=== PATIENT | male | born 1985 | race Caucasian/White ===

== ENCOUNTER → 2023-09-11 11:17 | Outpatient (CLI) | payer SELFPAY ==
--- NOTE | ~2023-09-11 | XR_ITS ---
[XR ribs RT 2V ] INDICATION: Right rib pain TECHNIQUE: Frontal projection of the upper right ribs, frontal projection of the lower right ribs, ob lique projection of all the right ribs, frontal inspiratory chest x-ray for interpretation. FINDINGS: There are no displaced rib fractures identified. There are no soft tissue abnormality see n. The lungs are clear. IMPRESSION: 1:No acute displaced rib fractures. Reviewed, dictated and finalized at location A.
== END ==
PROVIDERS: PCP Chiropractor; Visit Provider Chiropractor
DX: R07.81 Pleurodynia (principal)
CPT/HCPCS: 71100

== ENCOUNTER 2025-02-07 14:30 | Outpatient (RCR) | payer BC, SELFPAY ==
--- NOTE | 2025-01-24 13:39 | OTOPEVAL1 ---
Assessment and note entered by BIN Macias/Brooks, CHT OT Evaluation Information 01/24/25 Assessment Status Evaluation Diagnosis G56.22 Lesion of ulnar nerve, right UE Subjective Information Patient is right handed. He has been experiencing right UE/elbow pain for about a month or two. He describes the pain as radiating, noting it goes into his hand and the ulnar 2 digits. States he was prescribed Prednisone and this has helped, but he continues to have daily pain. 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 Does woodworking in his spare time. Reports elbow pain with gripping, lifting, and carrying. States he wakes up in the middle of the night with elbow pain if his elbow is bent. Reported Pain Level Pain Score 3: Self Report Additional Pain Score Comments Reports constant right elbow pain. Points to the lateral elbow as well as the medial elbow. Assessment OT Clinical Summary Patient referred to OT with right elbow pain and dx of ulnar nerve lesion. He presents with signs and symptoms of cubital tunnel syndrome as well as lateral epicondylitis. Educated patient on HEP for nerve glides and elbow positioning to reduce nerve compression. Also educated on wrist and chef french strengthening for the lateral elbow pain. Patient to work on this HEP and return for reassessment in 2 weeks. Plan of Care Interventions Therapeutic Exercise,Manual Therapy,Neuro Re- education,Therapeutic Activities,Hot Pack/Cold Pack,Ultrasound,Paraffin OT Services Indicated Yes These treatments will address the objective and functional deficits as defined above. The patient will be advanced safely and appropriately in order for the patient to progress towards his/her prior level of function. Additional exercises will be introduced and as well as a comprehensive home exercise program upon discharge, if needed, ?to ensure carryover of functional gains achieved in the clinic. This treatment plan has been reviewed and agreement upon by the patient.
--- NOTE | 2025-01-24 13:46 | OPREHPOC ---
Outpatient Therapy Plan of Care This is a Multidisciplinary Plan of Care that may contain components documented by all disciplines (PT, OT, and ST.) OT Problem 1 OT Problem #1 Knowledge Deficit OT Goal 1 Goal / Goal Update Patient to be independent with instructed materials. Target Visit 2 OT Problem 2 OT Problem #2 Pain OT Goal 1 Goal / Goal Update Patient to report reduced (R) elbow/UE pain to 0/ 10 at rest and 2/10 at worst . Target Visit 2 OT Problem 3 OT Problem #3 Impaired Flexibility OT Goal 1 Goal / Goal Update Patient to be able to complete right UE ulnar nerve tension test without pain. 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 Target Visit 2
--- NOTE | 2025-02-07 15:08 | OTOPDC ---
Assessment and note entered by Jc Tomas, OTR/Brooks, GILLIANT OT D/C SUMMARY 02/07/25 Assessment Status Discharge Diagnosis G56.22 Lesion of ulnar nerve, right UE ICD-10 Condition Codes (OT) Pain in right elbow M25.521 Subjective Information Patient reports good progress in the last 2 weeks. He reports his ulnar nerve pain has subsided, no longer experiencing symptoms in the ulnar 2 digits . He is no longer waking up with elbow pain. The lateral elbow pain has also improved, able to do more gripping, lifting, and carrying with less pain and pain that doesn't last as long. He is compliant with is HEP. Reported Pain Level Pain Score 0: Self Report Additional Pain Score Comments Patient reports no pain at rest. He states in the last week he had an instance of 6/10 pain, but this subsided quickly. Lateral elbow pain 2/10 with forceful gripping. Assessment OT Clinical Summary Patient referred to OT with right elbow pain and dx of ulnar nerve lesion. His ulnar nerve symptoms have subsided and the lateral elbow pain has improved. His etl lead strength has improved to normal limits. He continues to experience some lateral elbow pain with UE use. Today palpation of the lateral elbow reveals no tenderness and lateral epicondylitis tests were negative. Instead he has pain at the radial nerve in the radial tunnel with a positive upper limb tension test for the radial nerve. Issued radial nerve glides. He also has ECU pain with resisted wrist extension. Provided education on soft tissue mobilization for relief here. Reviewed HEP for gross strengthening. At this time patient is independent with all materials, making good progress with pain relief, and in agreement with D/C. D/C today with HEP. Plan of Care OT Services Indicated No
== END 2025-02-08 09:31 | disposition home or self-care (01) ==
LOC: ANHGOSHOT 14:30
PROVIDERS: PCP Internal Medicine; Visit Provider Clinical Nurse Specialist
DX: G56.21 Lesion of ulnar nerve, right upper limb (principal)
CPT/HCPCS: 97018; 97110; 97165

== ENCOUNTER 2025-03-01 12:49 | Outpatient (CLI) | payer BC, SELFPAY ==
--- OUTSIDE RECORDS SUMMARY | 2025-03-01 14:18 | XMS_ITS | Continuity of Care Document ---
Author Organization [facility] Address [address] [place] [address] Phone Care Team Providers Care Funeral Service Apprentice Name Role Phone Marks OD, Kb Unavailable Unavailable Procedures Procedure Date Remove Foreign Body From Eye Advance Directives Directive Yes / No Effective Date File Name No Information Encounters Encounter Description Practice Location Reason(s) For Visit Diagnoses Date Provider Providers Copied on Encounter [facility], [address], [place], [place], [id number], [place] tel:[phone] [facility] No Information 4-201 0 Marks OD Kb. [address] , [address], [place], [address], [place]. tel:[phone] Referring Provider: Mehul Mcpherson OD, [address] [place], [address]. tel:[phone] Family History Family Member Type Diagnosis Age At Onset No Information Payers Payer name Insurance type Covered alliance party ID Authoriza tion(s) No Information Social History Type Description Quantity Date Captured Comments Sex Male Smoking Status No Information Chief Complaint And Reason For Visit No Information Reason For Referral Reason For Referral No Information History Of Present Illness Encounter Date Complaint History Of Prese nt Illness No Information Functional Status Date Functional Assessmen t No Information Instructions Date Instruction Additional Infor mation No Information Assessments Type Assessment Date No Information Patient Care Teams Name Effective Dates (start - stop) Status Members No Information
--- OUTSIDE RECORDS SUMMARY | 2025-03-01 14:18 | XMS_ITS | Clinical Summary ---
Author Organization [facility] Administrative Offices Address [address] [place] [address] Care Team Providers Care Dustless Operator Name Role Phone Unavailable Primary Care Provider Unavailabl e Allergies No known active allergies Medications traMADol (ULTRAM) 50 mg tabletIndicatio ns:Vasectomy evaluation Take 2 Tablets (100 mg) by mouth every 8 hours as needed for Pain. 20 Tablet 5 Active LORazepam (ATIVAN) 1 mg tabletIndicatio ns:Vasectomy evaluation Take 3 pills 1 hour prior to procedure 3 Tablet 5 Active cephALEXin (KEFLEX) 500 mg capsule Take 1 Capsule (500 mg) by mouth every 8 hours for 7 days. Start after vasectomy 21 Capsule 5 02/29/20 25 Active Problems No known active problems Encounters Date Type Department Care Team Description 02/21/2025 9:55 AM CDT Office Visit [facility] at the [facility] Medicine [address] [place] [address] Kevin Singh MD Vasectomy evaluation (Primary Dx) 01/03/2025 External Device Data STL ABSTRACTION Provider, Abstract 12/01/2024 External Device Data STL ABSTRACTION Provider, Abstract from Last 3 Months Social History Tobacco Use Types Packs/Day Years Used Date Smoking Tobacco: Never Tobacco Cessation:Counseling Given: Not Answered Sex and Gender Information Value Date Recorded Sex Assigned at Not on file Legal Sex Male 8:01 AM CDT Gender Identity Not on file Sexual Orientation Not on file Last Filed Vital Signs Vital Sign Reading Time Taken Comments Blood Pressure 130/70 06/08/2024 8:16 AM CDT Pulse 67 06/08/2024 8:16 AM CDT Temperature 36.8 C (98.2 F) 06/08/2024 8:16 AM CDT Respiratory Rate 18 02/21/2025 9:46 AM CDT Oxygen Saturation 99% 06/08/2024 8:16 AM CDT Inhaled Oxygen Concentration - - Weight 86.2 kg (190 lb) 02/21/2025 9:46 AM CDT Height 188 cm (6' 2 ) 06/08/2024 8:16 AM CDT Body Mass Index 24.39 06/08/2024 8:16 AM CDT Plan of Treatment Health Maintenance Due Date Last Done Comments DTAP/TDAP/TD VACCINES (1 - Tdap) 2004 HEPATITIS B VACCINES (1 of 3 - 19+ 3-dose series) 2004 INFLUENZA VACCINE (#1) 2024 HPV VACCINES Aged Out No longer eligi ble based on patient's age to complete this topic Insurance [facility] BLUE ACCESS/TRUE BLUE PPO
--- NOTE | 2025-03-01 14:45 | NEURO_ITS ---
Impression: # Complains of right forearm discomfort. Non-diabetic. ? # Right ulnar neuropathy across the elbow. ? # No Carpal Tunnel Syndrome. ? # Normal needle/EMG exam. Nerve Conduction Studies Anti Sensory Summary Table ?Stim Site NR Peak (ms) P-T Amp (?V) Site1 Site2 Delta-P (ms) Dist (cm) Darshan (m/s) Right Median Anti Sensory (2-3nd Digit) Wrist ? 2.8 66.0 Wrist 2-3nd Digit 2.8 14.0 50 Wrist ? 2.9 78.7 Wrist 2-3nd Digit 2.8 14.0 50 Right Radial Anti Sensory (Base 1st Digit) Wrist ? 2.2 28.9 Wrist Base 1st Digit 2.2 0.0 Right Ulnar Anti Sensory (5th Digit) Wrist ? 2.5 58.5 Wrist 5th Digit 2.5 14.0 56 Motor Summary Table ?Stim Site NR Onset (ms) O-P Amp (mV) Site1 Site2 Delta-0 (ms) Dist (cm) Darshan (m/s) Right Median Motor (Abd Poll Brev) Wrist ? 3.4 2.1 Elbow Wrist 5.4 32.0 59 Elbow ? 8.8 8.9 Right Ulnar Motor (Abd Dig Minimi) Wrist ? 2.7 4.8 A Elbow Wrist 5.7 32.0 56 A Elbow ? 8.4 4.0 B Elbow Wrist 3.6 23.0 64 B Elbow ? 6.3 5.0 F Wave Studies ?NR F-Lat (ms) L-R F-Lat (ms) Right Median (Mrkrs) (Abd Poll Brev) ? 29.36 Right Ulnar (Mrkrs) (Abd Dig Min) ? 29.85 EMG ?Side Muscle Nerve Root Ins Act Fibs Amp Dur Recrt Comment Right 1stDorInt Ulnar C8-T1 Nml Nml Nml Nml Nml Right Ext Indicis Radial (Post Int) C7-8 Nml Nml Nml Nml Nml Right Ext Digitorum Radial (Post Int) C7-8 Nml Nml Nml Nml Nml Right BrachioRad Radial C5-6 Nml Nml Nml Nml Nml Right PronatorTeres Median C6-7 Nml Nml Nml Nml Nml Right Abd Poll Brev Median C8-T1 Nml Nml Nml Nml Nml Right ABD Dig Min Ulnar C8-T1 Nml Nml Nml Nml Nml Right FlexPolLong Median (Ant Int) C7-8 Nml Nml Nml Nml Nml Right Abd Poll Long Radial (Post Int) C7-8 Nml Nml Nml Nml Nml MTDD
== END 2025-03-01 12:50 | disposition home or self-care (01) ==
LOC: ANHNEURO 12:50
PROVIDERS: PCP Internal Medicine; Visit Provider Clinical Nurse Specialist
DX: G57.81 Other specified mononeuropathies of right lower limb (principal)
CPT/HCPCS: 95886; 95909

== ENCOUNTER 2025-06-21 00:52 | Day surgery (SDC) | payer BC, SELFPAY ==
[2025-06-12 13:25] VITALS: BMI 23.6
--- NOTE | 2025-06-12 13:26 | PC.NURSE ---
Report to the Outpatient Waiting Room, entrance under the green pavilion located off [facility], at time _1200_ on date _[id number]_. Planned Procedure Time: _2pm_.? Time changes happen often and if your time is changed the preop area will call you the afternoon before. - You and your visitor will be asked to self-screen and do not enter if you have any COVID symptoms. Please call surgeon if you need to reschedule. - A mask is optional within the hospital at this time. May have clear liquids (water, carbonated beverages, clear teas, apple juice) until 6am prior to surgery with a maximum of 20 ounces. Nothing to drink after 6am. - No food from midnight until time of surgery and no smoking, or chewing tobacco (or any form of nicotine). No chewing gum, candy or mints. Take only the following medications with a SIP of water on the morning of surgery: ___None____ DO NOT STOP ANY OF YOUR OTHER PRESCRIPTION MEDICATIONS PRIOR TO SURGERY EXCEPT THE FOLLOWING Hold all vitamins and supplements for 3 days per anesthesiologist. Medications to discontinue per physician Date to take last dose Please no make-up, nail irish, hairspray, perfume, deodorant, or body powder the day of surgery.? No jewelry (including any body piercings) or valuables the day of surgery, leave them at home.? Please take a shower or bath the night before, or the morning of, surgery with an antibacterial soap.? Wear comfortable, loose fitting clothing.? - Jewelry must be removed prior to entering the operating room.? Rings and piercings that are not removed may be cut off. - The hospital will not accept responsibility for valuables.? - Please leave all valuables, including medications, at home the day of surgery. If you are going home after surgery, a licensed route driver salesperson must drive you home.? - NO public transportation without another adult if you receive anesthesia. - We recommend that an adult stay with you for 24 hours following discharge. - We also recommend that you do not drive, make important decision, drink alcoholic beverages, or take any drugs that were not prescribed by your health care provider for at least 24 hours after your discharge time. Follow any additional instructions given to you from your surgeon. Telephone instructions given to __James__and asked if any additional questions and then verbalized understanding. Patient advised to call surgeon office or pre surgery nurse liaison [phone] if any additional questions.
--- OUTSIDE RECORDS SUMMARY | 2025-06-21 00:55 | XMS_ITS | Continuity of Care Document ---
Author Organization [facility] Address [address] [place] [address] Phone Care Team Providers Care Retail And Restaurant Associate Name Role Phone Mraks OD, Kb Unavailable Unavailable Procedures Procedure Date Remove Foreign Body From Eye Advance Directives Directive Yes / No Effective Date File Name No Information Encounters Encounter Description Practice Location Reason(s) For Visit Diagnoses Date Provider Providers Copied on Encounter [facility], [address], [place], [place], [id number], [place] tel:[phone] [facility] No Information 4-201 0 Marks OD Kb. [address] , [address], [place], [address], [place]. tel:[phone] Referring Provider: Mehul Mcpherson OD, [address] [place], [address]. tel:[phone] Family History Family Member Type Diagnosis Age At Onset No Information Payers Payer name Insurance type Covered democrat ID Authoriza tion(s) No Information Social History [...]
--- OUTSIDE RECORDS SUMMARY | 2025-06-21 00:55 | XMS_ITS | Clinical Summary ---
Author Organization [facility] Administrative Offices Address [address] [place] [address] Care Team Providers Care Mailer Name Role Phone Unavailable Primary Care Provider Unavailabl e Allergies No known active allergies Medications traMADol (ULTRAM) 50 mg tabletIndicatio ns:Vasectomy evaluation Take 2 Tablets (100 mg) by mouth every 8 hours as needed for Pain. 20 Tablet 5 Active LORazepam (ATIVAN) 1 mg tabletIndicatio ns:Vasectomy evaluation Take 3 pills 1 hour prior to procedure 3 Tablet 5 Active Active Problems No known active problems Encounters Date Type Department Care Team Description 04/11/2025 External Device Data STL ABSTRACTION Provider, Abstract [...] 9:46 AM CDT Height 188 cm (6' 2) 06/08/2024 8:16 AM CDT Body Mass Index 24.39 06/08/2024 8:16 AM CDT Plan of Treatment Health Maintenance Due Date Last Done Comments HPV VACCINES (1 - Male 3-dose series) 2000 DTAP/TDAP/TD VACCINES (1 - Tdap) 2004 HEPATITIS B VACCINES (1 of 3 - 19+ 3-dose series) 05/2004 INFLUENZA VACCINE (#1) 2025 Insurance [facility] [place] [employer]/TRUE [email or web address] PPO
--- NOTE | 2025-06-21 07:03 | P.OP_ITS ---
Procedure Note - Detailed Date of Procedure 06/21/25 Pre-op Diagnosis Right Cubital Tunnel and carpal tunnel syndrome Post-op Diagnosis Same Procedure Performed right CuTR and right carpal tunnel steroid injection Surgeon Amilcar Han MD Brickmason Apprentice saba kim pa-c Anesthesia MAC Description of Procedure INFORMED CONSENT:The patient was seen and examined and marked in the pre-op area.? The patient signed the consent form. PROCEDURE IN DETAIL: The patient taken back to OR on the stretcher in supine position. Time out performed with anesthesia, surgeon and staff agreeing on patient's name site and surgery to be performed SCDs were placed on the lower extremities and inflated A tourniquet was placed on {right} upper extremity and antibiotics given IV After anesthesia administered sedation I injected {8}cc 1%lido with epi and 0.5% marcaine plain at the operative site The?{right upper extremity}?was prepped and draped in sterile fashion the??{right upper extremity} was??exsanguinated with Esmarch bandage and tourniquet inflated to 250mmHg I next proceeded with making a longitudinal incision between two heads for flexor carpi ulnaris at end of {right} cubital tunnel with 15 blade scalpel.? Littler scissors were used to spread down to FCU fascia.? An incision was made in FCU fascia and ulnar nerve identified exiting cubital tunnel.? I proceeded with complete retrograde release of the cubital tunnel including 7cm proximal for the intermuscular septum.? The nerve appeared healthy with visible vaso nervorum.? There was no subluxation on full elbow range of motion. ? I irrigated with normal saline and closure with 4-0 monocryl for dermis and subcuticular. Next, i injected 0.3cc 1%lidocaine plain and 0.7cc Betamethasone 6mg/ml into the right carpal tunnel The incision was covered with Dermabond then 4x4s, donte, and a posterior elbow splint for patient safety, security and comfort and secured with suzanne bandages after the tourniquet was let down noting the hand was warm and well perfused.? Patient awaken from anesthesia and transferred to recovery in stable condition Complications - none EBL- 1cc Disposition - home in stable condition Saba Kim PA-C was essential for positioning, retraction, closure and dressing placement AM Billing Surgery - Charge Forward: Surgery Billing ([id number] for saba)
--- NOTE | 2025-06-21 07:03 | WPDHPUPDATE1 ---
History and Physical Update Update Date/Time: 06/21/25 07:03 Patient seen and examined in pre-operative holding area. No interval change in medical history or symptoms. Patient recalls previous discussion of benefits and alternatives to procedure. Continues to desire to proceed with right cubital tunnel release and right carpal tunnel steroid injection. Reviewed procedure, post-op expectations and risks including but not limited to bleeding, infection, injury to tendon/nerve/vessel, decreased hand function, stiffness, RSD, no change or worsening of symptoms. I discussed the possible use of assistants and their participation in the case. Patient stated understanding and signed the consent form wishing to proceed.
--- NOTE | 2025-06-21 08:11 | WPDANESEPPF ---
Anes - Initial Pre Proc Eval Procedure: Operation Date: 06/21/25 14:00 Proposed Procedures p Right Cubital Tunnel Release, Right Carpal Tunnel Steroid Injection - Amilcar Han MD Date/Time: 06/21/25 08:11 Surgeon: Amilcar Han MD Pre Op Diagnosis: Right Cubital Tunnel syndrome Patient Data Age: 40 Gender: M Height: 1.88 m Weight: 83.6 kg Allergies Allergy/AdvReac Type Severity Reaction Status Date / Time No Known Allergies Allergy Verified 06/21/25 12:39 Home Medications ?Medication ?Instructions ?Recorded ?Confirmed ?Type No Home Medications 06/12/25 06/12/25 History Patient hx anesthesia problems: none Family hx anesthesia problems: none Results Review: All pre-operative results and documents have been reviewed as part of the pre-operative evaluation. [facility] Social History Social History (Updated 06/14/25 @ 15:04 by Yohana Zimmerman) Social History: Caffeine- coffee Smoking status: Never smoker Alcohol intake: current Drinks per week: 4 Substance use: never Substance use type: does not use Lack of Transportation: No Lack of Food: Never True Current Housing: I Have Housing Concerned About Future Housing: No Difficulty Paying Gas/Electric Bills: No Difficulty Paying for Meds: No Currently Unemployed: No Education: Associate Degree Difficulty w/ Childcare or Family Care: No Living arrangements: with family Spiritual care concerns: No Anes - Eval Final PreProcedure Day of Procedure 06/21/25 08:11 Patient weight: normal Heart: regular rate and rhythm Lungs: clear to auscultation and normal air movement Airway: Mallampati scale class II Neurological: alert and oriented Last oral intake: >/= 8 hours ASA classification: I Emergent: no Anesthetic plan: proceed Anesthesia type and monitoring: general GIVS and standard monitoring Results Review: All pre-operative results and documents have been reviewed as part of the pre-operative evaluation. Informed Consent: The patient's anesthetic plan and its attendant risks and benefits were discussed with the patient/family/POA. Questions were solicited and answers provided to the satisfaction of the patient/family/POA.
[2025-06-21 12:20] VITALS: BP 129/86; PULSE 68; RESP 16; TEMP 36.5; O2SAT 98
[2025-06-21] MEDS: ACETAMINOPHEN 500 MG TABLET 1000 MG PO (12:20)
[2025-06-21] MEDS: LACTATED RINGERS 1,000 ML 30 ML IV CONT (12:20)
[2025-06-21] MEDS: ceFAZolin 2 GM in SODIUM CHLORIDE 0.9% IV 50 ML 100 ML IVPB (15:23)
[2025-06-21] MEDS: BETAMETHASONE SODIUM PHOSPHATE PF INJ 6 MG/ML VIAL 4.2 MG INFILTRATE (15:35)
[2025-06-21] MEDS: LIDO 1%/EPINEPHRINE 1:100,000 20 ML VIAL 10 ML INFILTRATE (15:36)
[2025-06-21] MEDS: LIDOCAINE 0.5% INFILTRATE (15:36)
[2025-06-21] MEDS: BUPivacaine HCL 0.5% 10 ML AMP INFILTRATE (15:37)
[2025-06-21 15:43] VITALS: BP 95/53; PULSE 61; RESP 16; O2SAT 99
[2025-06-21 16:10] VITALS: BP 92/52; PULSE 56; RESP 16; O2SAT 100
[2025-06-21 16:20] VITALS: BP 105/69; PULSE 55; RESP 16; O2SAT 100
[2025-06-21 16:45] VITALS: BP 116/81; PULSE 52; RESP 16; O2SAT 100
== END 2025-06-21 17:17 | disposition home or self-care (01) ==
PROVIDERS: PCP Internal Medicine; Visit Provider Plastic Surgery
PROC: (CPT 64721; principal; 2025-06-21 14:00)
DX: G56.01 Carpal tunnel syndrome, right upper limb (principal); G56.21 Lesion of ulnar nerve, right upper limb
CPT/HCPCS: 64718; 20526; J0690; A9270; J1100; J2003; J2004; J2250; J2704; J3010; J7120

== ENCOUNTER 2025-10-23 19:45 | Emergency (ER) | payer BC, SELFPAY ==
--- NOTE | ~2025-10-23 | XR_ITS ---
XR foot LT min 3V INDICATION: cinder block to midfoot today, DORSAL PAIN . COMPARISON: None. FINDINGS: Frontal, lateral and oblique views of the left foot demonstrate no acute fracture or dislocation. IMPRESSION: No acute fracture or dislocation. Reviewed, dictated and finalized at location S. [facility]
[2025-10-23 19:52] VITALS: BP 144/95; PULSE 95; RESP 16; TEMP 36.8; O2SAT 100
--- NOTE | 2025-10-23 19:58 | ED.LOWEXIN ---
HPI - Extremity Injury (Lower) General Chief Complaint: Extremity Injury, Lower Stated Complaint: Injured L Foot Time Seen by Provider: 10/23/25 19:54 Source: patient and RN notes reviewed Mode of arrival: ambulatory Limitations: no limitations History of Present Illness HPI Narrative: 40-year-old male patient presents today complaining of an injury to the dorsum of the left foot. Approximately 8 hours prior to arrival, patient accidentally dropped a cinder block on his foot. He did have a boot on at time. He has iced the foot without improvement. Currently rates his pain 10/10. Denies numbness or tingling. Related Data Home Medications ?Medication ?Instructions ?Recorded ?Confirmed ?Last Taken ?Type No Home Medications 10/23/25 10/23/25 Unknown History Allergies Allergy/AdvReac Type Severity Reaction Status Date / Time No Known Allergies Allergy Verified 10/23/25 20:02 [facility] Social History Social History Social History: Caffeine- coffee Smoking status: Never smoker Alcohol intake: current Drinks per week: 4 Substance use: never Substance use type: does not use Lack of Transportation: No Lack of Food: Never True Current Housing: I Have Housing Concerned About Future Housing: No Difficulty Paying Gas/Electric Bills: No Difficulty Paying for Meds: No Currently Unemployed: No Education: Associate Degree Difficulty w/ Childcare or Family Care: No Living arrangements: with family Spiritual care concerns: No Comments At time of signature, I have reviewed and agree with nursing past medical, surgical, social and family history unless otherwise noted. Please see nursing chart for further information. There is no relevant family history pertinent to the presenting complaint Exam Narrative: GENERAL: Well-appearing, well-nourished, and in moderate pain distress. HEAD: Normocephalic, atraumatic. EYES: EOMI. No redness or drainage. Conjunctivae normal. ENT: Mucous membranes pink and moist. NECK: Normal AROM. CHEST: No respiratory distress. EXTREMITIES: Left foot: Few small superficial abrasions to the dorsum of the midfoot with significant tenderness to this area. No edema or dark ecchymosis to the foot. Distal sensation intact in all 5 toes. Capillary refill normal. Pedal pulse normal. Range of motion of all 5 toes with some increased pain to the foot. SKIN: Warm, dry, no rash. Capillary refill normal. Normal skin turgor. NEURO: No focal deficits. Alert and oriented x3. Gait steady. PSYCH: Normal affect. No signs of depression or anxiety. Course Course Level of Care: Express Care Visit Vital Signs Vital signs: Vital Signs Temperature 98.2 F 10/23/25 19:52 Pulse Rate 95 10/23/25 19:52 Respiratory Rate 16 10/23/25 19:52 Blood Pressure 144/95 H 10/23/25 19:52 Pulse Oximetry 100 10/23/25 19:52 Temperature 98.2 F 10/23/25 19:52 Pulse Rate 95 10/23/25 19:52 Respiratory Rate 16 10/23/25 19:52 Blood Pressure 144/95 H 10/23/25 19:52 Pulse Oximetry 100 10/23/25 19:52 Reviewed MDM MDM Narrative Medical decision making narrative: 40-year-old male patient presents today complaining of an injury to the dorsum of the left foot. Approximately 8 hours prior to arrival, patient accidentally dropped a cinder block on his foot. He did have a boot on at time. He has iced the foot without improvement. Currently rates his pain 10/10. Denies numbness or tingling. Upon exam,Few small superficial abrasions to the dorsum of the midfoot with significant tenderness to this area. No edema or dark ecchymosis to the foot. Distal sensation intact in all 5 toes. Capillary refill normal. Pedal pulse normal. Range of motion of all 5 toes with some increased pain to the foot. X-ray negative for fracture. Recommend anti-inflammatories ice elevation with orthopedic or PCP follow-up in 1 week if symptoms persist. Patient agrees with plan. Vital signs stable. Anticipatory guidance and ED precautions given. Differential Diagnosis Differential Diagnosis: Contusion, fracture Imaging Data Radiologist's impression: ITS Impressions Foot X-Ray 10/23/25 20:09 IMPRESSION: No acute fracture or dislocation. Critical Care Time Critical Care Time Critical Care Time: No Discharge Plan Discharge Clinical Impression: Crush injury of left foot Qualifiers: Encounter type: initial encounter Qualified Code(s): S97.82XA - Crushing injury of left foot, initial encounter Patient Disposition: Home Condition: Stable Instructions: Contusion in Adults (ED) Additional Instructions: Your x-ray is negative today. Elevate and ice the foot. Taking anti-inflammatories such as Aleve or ibuprofen to help with pain and inflammation. Follow-up with your PCP or orthopedics in 1 week if symptoms are not improving. If you develop any worsening symptoms such as numbness or paleness in the foot, please go to the ER immediately for further evaluation. Patient Language: Uz[place] Prescriptions: No Action No Home Medications Follow-up/Referrals: Anton Treviño MD [Physician, Orthopedics] Donato Mcclure DO [Primary Care Provider, Internal Medicine] Time of Disposition: 20:16
== END 2025-10-23 20:20 | disposition home or self-care (01) ==
PROVIDERS: Emergency Provider Nurse Practitioner; PCP Internal Medicine
DX: S97.82XA Crushing injury of left foot, initial encounter (principal); W20.8XXA Other cause of strike by thrown, projected or falling object, initial encounter
CPT/HCPCS: 73630; 99213; G0463